=== PATIENT | female | born 1955 | race African-American/Black ===

== ENCOUNTER 2017-04-27 07:48 | Emergency (ER) | payer MEDICAID ==
[~2017-04-27] VITALS: Ht 165.1 cm; Wt 121.0 kg
[2017-04-27] MEDS ORDERED: SODIUM CHLORIDE 0.9% 1,000 ML IV ONE (08:04)
[2017-04-27] MEDS ORDERED: FAMOTIDINE 20MG/2ML VIAL IV STA (08:04)
[2017-04-27 08:21] LABS: BASOPHILS % 1.1 % (0.0-2.0); EOSINOPHILS % 4.1 % (0.0-5.0); HEMATOCRIT. 45.2 % (36.0-48.0); HEMOGLOBIN. 15.3 g/dL (12.0-16.0); LYMPHOCYTES % 53.1 % (20.0-50.0); MEAN CORPUSCULAR HEMOGLOBIN 29.9 pg (28.0-32.0); MEAN CORPUSCULAR VOLUME 88.5 fL (81.0-99.0); MEAN PLATELET VOLUME 8.3 fl (7.4-10.4); MONOCYTES % 9.6 % (2.0-8.0); NEUTROPHILS % 32.1 % (40.0-76.0); PLATELET 251 x1000/uL (130-400); RED BLOOD CELL COUNT 5.11 mill/uL (4.2-5.4); RED CELL DISTRIBUTION WIDTH 15.1 % (11.6-14.6)
[2017-04-27 08:27] LABS: CHLORIDE 104 mEq/L (98-107)
[2017-04-27 08:29] LABS: PARTIAL THROMBOPLASTIN TIME 27.3 sec (23.4-31.0); PROTHROMBIN TIME 10.7 sec (9.4-11.6)
[2017-04-27] MEDS ORDERED: ONDANSETRON HCL 4MG/2ML VIAL IV STA (08:30)
[2017-04-27] MEDS ORDERED: MORPHINE SULFATE 4 MG/ML CPJ (NOT FOR IM USE) IV STA (08:30)
[2017-04-27 08:34] LABS: CLARITY URINE HAZY (CLEAR); COLOR URINE YELLOW (YELLOW); GLUCOSE URINE NEGATIVE (NEGATIVE); KETONES URINE NEGATIVE (NEGATIVE); LEUKOCYTE ESTERASE URINE NEGATIVE (NEGATIVE); NITRITE URINE NEGATIVE (NEGATIVE); OCCULT BLOOD URINE NEGATIVE (NEGATIVE); PROTEIN URINE NEGATIVE (NEGATIVE)
[2017-04-27 08:35] LABS: CARBON DIOXIDE 31 mEq/L (21-32)
[2017-04-27 10:53] VITALS: BP 135/68
== END 2017-04-27 11:01 | disposition home or self-care (01) ==
LOC: ER 07:48
DX: K80.80 Other cholelithiasis without obstruction (principal); K76.0 Fatty (change of) liver, not elsewhere classified; R10.11 Right upper quadrant pain; I10 Essential (primary) hypertension; D72.819 Decreased white blood cell count, unspecified; E78.00 Pure hypercholesterolemia, unspecified; Z98.890 Other specified postprocedural states
CPT/HCPCS: 36415; 76705; 80053; 81003; 83690; 85025; 85610; 85730; 87086; 96374; 96375; 99285; J2270; J2405; J3490; J7030; Z7610

== ENCOUNTER 2018-12-15 06:50 | Inpatient (IN) | payer MEDICAID ==
[~2018-12-15] VITALS: Ht 165.1 cm; Wt 122.5 kg
[2018-12-15] MEDS ORDERED: LACTATED RINGERS 1,000 ML IV SCH (07:30)
[2018-12-15 08:43] LABS: CLARITY URINE CLEAR (CLEAR); COLOR URINE YELLOW (YELLOW); KETONES URINE NEGATIVE (NEGATIVE); LEUKOCYTE ESTERASE URINE NEGATIVE (NEGATIVE); NITRITE URINE NEGATIVE (NEGATIVE); OCCULT BLOOD URINE NEGATIVE (NEGATIVE); PROTEIN URINE NEGATIVE (NEGATIVE); SPECIFIC GRAVITY URINE 1.023 (1.005-1.030)
[2018-12-15] MEDS ORDERED: TRANEXAMIC ACID 1,000 MG in SODIUM CHLORIDE 0.9% 100 ML IV NR ×2 (08:45→09:00)
[2018-12-15] MEDS ORDERED: TRANEXAMIC ACID 1,000 MG/10 ML IV ONE (09:00)
[2018-12-15] MEDS ORDERED: CHOL200010 PO (09:00)
[2018-12-15] MEDS ORDERED: MULT-1146 PO (09:00)
[2018-12-15] MEDS ORDERED: ASPI-1160 PO (09:00)
[2018-12-15] MEDS ORDERED: AMLO5TAB4 PO (09:00)
[2018-12-15] MEDS ORDERED: ATOR10TA PO (09:00)
[2018-12-15] MEDS ORDERED: MORPHINE SULFATE/PF 1MG/ML 10ML AMP ONE (09:35)
[2018-12-15] MEDS ORDERED: BUPIVACAINE/EPINEPH/PF 0.25%/0.0005 10ML ONE ×2 (09:35→09:51)
[2018-12-15] MEDS ORDERED: METHYLENE BLUE 50 MG/10 ML AMP IV ONE (09:35)
[2018-12-15] MEDS ORDERED: BACITRACIN 50,000 UNITS/VIAL ONE (09:36)
[2018-12-15] MEDS ORDERED: SODIUM CHLORIDE 0.9% 10ML VIAL ONE (09:36)
[2018-12-15] MEDS ORDERED: EPINEPHRINE 1:1000 1 MG/ML AMP ONE (09:36)
[2018-12-15] MEDS ORDERED: PROPOFOL 200MG/20ML VIAL IV ONE (09:49)
[2018-12-15] MEDS ORDERED: MIDAZOLAM HCL 2 MG/2 ML VIAL ONE (09:49)
[2018-12-15] MEDS ORDERED: ROCURONIUM BROMIDE 10MG/ML VIAL 5ML IV ONE ×2 (09:49→09:51)
[2018-12-15] MEDS ORDERED: LIDOCAINE HCL 1% 20ML VIAL (Pyxis) INJ ONE (09:49)
[2018-12-15] MEDS ORDERED: GLYCOPYRROLATE 0.2 MG/ML 2ML VIAL ONE (09:49)
[2018-12-15] MEDS ORDERED: SUCCINYLCHOLINE CHLORIDE 200MG/10ML IV ONE (09:59)
[2018-12-15] MEDS ORDERED: ONDANSETRON HCL 4MG/2ML INJ IV PRN (10:15)
[2018-12-15] MEDS ORDERED: MAGNESIUM HYDROXIDE 400MG/5ML 30ML UDC PO PRN (10:15)
[2018-12-15] MEDS ORDERED: ZOLPIDEM TARTRATE 5MG TABLET PO PRN (10:15)
[2018-12-15] MEDS ORDERED: METOCLOPRAMIDE HCL 10MG/2ML VIAL ONE (10:20)
[2018-12-15] MEDS ORDERED: GENTAMICIN SULF 40MG/ML 2ML VIAL ONE (10:54)
[2018-12-15] MEDS ORDERED: VANCOMYCIN HCL 500 MG/VIAL ONE (10:55)
[2018-12-15] MEDS ORDERED: DIPHENHYDRAMINE INJ IV PRN (11:45)
[2018-12-15] MEDS ORDERED: ONDANSETRON INJ IV PRN (11:45)
[2018-12-15] MEDS ORDERED: NALOXONE INJ IV PRN (11:45)
[2018-12-15] MEDS ORDERED: HYDROMORPHONE PCA 10MG/50ML IV PRN (11:45)
[2018-12-15 16:58] VITALS: BP 147/71
[2018-12-15] MEDS: DOCUSATE SODIUM 100MG CAPSULE PO SCH (18:48)
[2018-12-15 20:00] VITALS: BP 113/58
[2018-12-15] MEDS: CEFAZOLIN 2,000 MG in DEXT 5% WATER 100 ML IV SCH (20:44)
[2018-12-16] VITALS: BP 134/63
[2018-12-16 04:00] VITALS: BP 110/54
[2018-12-16] MEDS: CEFAZOLIN 2,000 MG in DEXT 5% WATER 100 ML IV SCH (04:13)
[2018-12-16 06:42] LABS: BASOPHILS % 0.2 % (0.0-2.0); HEMATOCRIT. 35.2 % (36.0-48.0); HEMOGLOBIN. 11.9 g/dL (12.0-16.0); LYMPHOCYTES % 18.5 % (20.0-50.0); MEAN CORPUSCULAR HEMOGLOBIN 29.8 pg (28.0-32.0); MEAN CORPUSCULAR VOLUME 87.9 fL (81.0-99.0); MEAN PLATELET VOLUME 8.1 fl (7.4-10.4); MONOCYTES % 8.8 % (2.0-8.0); NEUTROPHILS % 72.5 % (40.0-76.0); PLATELET 256 x1000/uL (130-400); RED CELL DISTRIBUTION WIDTH 14.7 % (11.6-14.6)
[2018-12-16 06:47] LABS: CHLORIDE 103 mEq/L (98-107)
[2018-12-16] MEDS: DOCUSATE SODIUM 100MG CAPSULE PO SCH ×2 (10:14→17:07)
[2018-12-16] MEDS: ENOXAPARIN 30MG/0.3ML SYR SUBCUT SCH ×2 (10:14→20:42)
[2018-12-16 12:00] VITALS: BP 141/68
[2018-12-16 16:00] VITALS: BP 142/69
[2018-12-16] MEDS: ACETAMINOPHEN 325MG TABLET PO PRN (17:07)
[2018-12-16] MEDS: TRAMADOL 50MG TABLET PO PRN (19:00)
[2018-12-16 20:00] VITALS: BP 116/66
[2018-12-17] VITALS: BP 158/88
[2018-12-17] MEDS: TRAMADOL 50MG TABLET PO PRN ×3 (00:46→16:11)
[2018-12-17 06:42] VITALS: BP 134/70
[2018-12-17 08:00] VITALS: BP 145/81
[2018-12-17] MEDS: DOCUSATE SODIUM 100MG CAPSULE PO SCH ×2 (08:35→16:11)
[2018-12-17] MEDS: ACETAMINOPHEN 325MG TABLET PO PRN (08:37)
[2018-12-17] MEDS: ENOXAPARIN 30MG/0.3ML SYR SUBCUT SCH (08:37)
[2018-12-17] MEDS ORDERED: HYDROCODONE/ACETAMINOPHEN 5/325MG TABLET PO PRN (10:45)
[2018-12-17] MEDS ORDERED: AMLODIPINE 5MG TABLET PO SCH (10:45)
[2018-12-17 12:00] VITALS: BP 131/67
[2018-12-17 16:26] VITALS: BP 158/78
[2018-12-17 16:55] VITALS: BP 145/78
[2018-12-17] MEDS ORDERED: ATORVASTATIN CALCIUM 10MG TABLET PO SCH (21:00)
== END 2018-12-17 17:23 | disposition home health service (06) | DRG 302 ==
LOC: OR 06:50 → 6EST 06:51
PROVIDERS: ADMIT Orthopaedic Surgery; ATTEND Orthopaedic Surgery
PROC: 0SRC0J9 Replacement of Right Knee Joint with Synthetic Substitute, Cemented, Open Approach (ICD-10-PCS; principal; 2018-12-15)
DX: M17.0 Bilateral primary osteoarthritis of knee (principal); E66.01 Morbid (severe) obesity due to excess calories; Z68.41 Body mass index [BMI] 40.0-44.9, adult; E66.9 Obesity, unspecified; M65.9 Synovitis and tenosynovitis, unspecified; E78.5 Hyperlipidemia, unspecified; I10 Essential (primary) hypertension; G89.29 Other chronic pain; Z88.5 Allergy status to narcotic agent; R53.81 Other malaise; Z98.891 History of uterine scar from previous surgery; Z90.89 Acquired absence of other organs; Z90.49 Acquired absence of other specified parts of digestive tract
CPT/HCPCS: 36415; 73560; 80048; 86850; 86900; 88305; 88311; 97110; 97116; 97162; 97166; 97535; J0171; J0330; J0690; J1170; J1580; J1650; J2250; J2274; J2405; J2704; J2765; J3370; J3490; J7040; J7050; J7060; Q9968